=== PATIENT | male | born 1980 | race Caucasian/White ===

== ENCOUNTER 2022-08-15 20:50 | Emergency (ER) | payer SELFPAY ==
[~2022-08-15] VITALS: Ht 172.7 cm; Wt 96.0 kg
[2022-08-15 21:00] VITALS: BP 155/85
[2022-08-15] MEDS ORDERED: ACETAMINOPHEN 325MG TABLET PO ONE (21:45)
[2022-08-15] MEDS ORDERED: ONDANSETRON HCL 4MG TABLET PO ONE (21:45)
[2022-08-16 01:38] LABS: BASOPHILS % 0.3 % (0.0-2.0); EOSINOPHILS % 0.1 % (0.0-5.0); HEMATOCRIT. 41.6 % (42.0-52.0); HEMOGLOBIN. 13.7 g/dL (14.0-18.0); MEAN CORPUSCULAR HEMOGLOBIN 27.7 pg (28.0-32.0); MEAN CORPUSCULAR VOLUME 84.4 fL (80.0-94.0); MEAN PLATELET VOLUME 8.1 fl (7.4-10.4); MONOCYTES % 4.1 % (2.0-8.0); NEUTROPHILS % 82.5 % (40.0-76.0); PLATELET 227 x1000/uL (130-400); RED BLOOD CELL COUNT 4.93 mill/uL (4.7-6.1); RED CELL DISTRIBUTION WIDTH 15.6 % (11.6-14.6)
[2022-08-16 01:42] LABS: CHLORIDE 100 mEq/L (98-107)
[2022-08-16] MEDS ORDERED: TOPUD PO (01:58)
[2022-08-16] MEDS ORDERED: ONDA4TAB50 PO (01:58)
[2022-08-16] MEDS ORDERED: FAMO-135 MT (14:56)
[2022-08-16] MEDS ORDERED: ONDA4TAB11 PO (14:56)
== END 2022-08-16 02:43 | disposition home or self-care (01) ==
LOC: ER 20:50 → EDBD 20:50 → ER 08-16 02:43
DX: R10.9 Unspecified abdominal pain (principal); R11.2 Nausea with vomiting, unspecified
CPT/HCPCS: 36415; 80053; 85025; 99283

== ENCOUNTER 2022-08-16 03:34 | Emergency (ER) | payer MEDICAID ==
[~2022-08-16] VITALS: Ht 167.6 cm; Wt 72.0 kg
[~2022-08-16 03:34] MED LIST: ONDA4TAB50 PO; TOPUD PO
[2022-08-16] MEDS ORDERED: LORAZEPAM 2MG/ML CPJ IV ONE (09:00)
[2022-08-16] MEDS ORDERED: ONDANSETRON HCL 4MG/2ML INJ IV ONE (09:00)
[2022-08-16] MEDS ORDERED: SODIUM CHLORIDE 0.9% 1,000 ML IV ONE (09:00)
[2022-08-16 09:41] LABS: BASOPHILS % 0.3 % (0.0-2.0); CHLORIDE 98 mEq/L (98-107); EOSINOPHILS % 0.2 % (0.0-5.0); HEMATOCRIT. 44.5 % (42.0-52.0); HEMOGLOBIN. 14.6 g/dL (14.0-18.0); MEAN CORPUSCULAR HEMOGLOBIN 27.6 pg (28.0-32.0); MEAN CORPUSCULAR VOLUME 84.1 fL (80.0-94.0); MEAN PLATELET VOLUME 8.5 fl (7.4-10.4); NEUTROPHILS % 80.5 % (40.0-76.0); PLATELET 276 x1000/uL (130-400); RED BLOOD CELL COUNT 5.29 mill/uL (4.7-6.1); RED CELL DISTRIBUTION WIDTH 15.8 % (11.6-14.6)
[2022-08-16 09:52] LABS: ETHANOL BLOOD < 10 mg/dL
[2022-08-16] MEDS ORDERED: LORAZEPAM 2MG/ML CPJ IV NR (10:09)
[2022-08-16] MEDS ORDERED: ONDANSETRON HCL 4MG/2ML INJ IV NR (10:10)
[2022-08-16] MEDS ORDERED: SODIUM CHLORIDE 0.9% 1,000 ML IV NR (13:00)
[2022-08-16 14:26] LABS: *AMPHETAMINES SCREEN URINE NEGATIVE (NEGATIVE); *BARBITURATES SCREEN URINE NEGATIVE (NEGATIVE); *BENZODIAZEPINES SCREEN URINE NEGATIVE (NEGATIVE); *COCAINE SCREEN URINE NEGATIVE (NEGATIVE); CANNABINOID URINE SCREEN PRESUMTIVE POSITIVE (NEGATIVE); METHADONE URINE SCREEN NEGATIVE (NEGATIVE); OPIATES URINE SCREEN NEGATIVE (NEGATIVE); PHENCYCLIDINE URINE SCREEN NEGATIVE (NEGATIVE)
[2022-08-16] MEDS ORDERED: FAMO-135 MT (14:56)
[2022-08-16] MEDS ORDERED: ONDA4TAB11 PO (14:56)
[2022-08-16 15:14] VITALS: BP 129/66
== END 2022-08-16 15:28 | disposition home or self-care (01) ==
LOC: ER 03:34
DX: R10.13 Epigastric pain (principal); R11.2 Nausea with vomiting, unspecified
CPT/HCPCS: 36415; 80053; 80305; 80320; 85025; 96361; 96374; 96375; 99285; J2060; J2405; G0480

== ENCOUNTER 2022-09-01 08:11 | Emergency (ER) | payer MEDICAID ==
[~2022-09-01] VITALS: Ht 167.6 cm; Wt 87.0 kg
[~2022-09-01 08:11] MED LIST changes: +FAMO-135 MT; +ONDA4TAB11 PO
[2022-09-01 08:34] VITALS: BP 160/100
[2022-09-01] MEDS ORDERED: MAGNESIUM/ALUMINUM HYDROXIDE/SIMETHICONE 30ML UDC PO STA (08:47)
== END 2022-09-01 09:02 | disposition left against medical advice (07) ==
LOC: ER 08:11
DX: R10.9 Unspecified abdominal pain (principal); R11.2 Nausea with vomiting, unspecified; Z13.9 Encounter for screening, unspecified
CPT/HCPCS: 99283

== ENCOUNTER 2022-09-06 16:07 | Emergency (ER) | payer MEDICAID ==
[~2022-09-06] VITALS: Ht 170.2 cm; Wt 71.0 kg
[2022-09-06 16:10] VITALS: BP 150/90
[2022-09-06] MEDS ORDERED: ONDANSETRON HCL 4MG/2ML INJ IV STA (16:31)
[2022-09-06] MEDS ORDERED: METOCLOPRAMIDE HCL 10MG/2ML VIAL IV STA (16:31)
[2022-09-06] MEDS ORDERED: MAGNESIUM/ALUMINUM HYDROXIDE/SIMETHICONE 30ML UDC PO STA (16:31)
[2022-09-06] MEDS ORDERED: FAMOTIDINE 20MG/2ML VIAL IV STA (16:31)
[2022-09-06 17:35] LABS: BASOPHILS % 0.4 % (0.0-2.0); EOSINOPHILS % 0.9 % (0.0-5.0); HEMATOCRIT. 39.2 % (42.0-52.0); HEMOGLOBIN. 12.9 g/dL (14.0-18.0); LYMPHOCYTES % 12.5 % (20.0-50.0); MEAN CORPUSCULAR HEMOGLOBIN 27.6 pg (28.0-32.0); MEAN CORPUSCULAR VOLUME 83.7 fL (80.0-94.0); MONOCYTES % 6.5 % (2.0-8.0); NEUTROPHILS % 79.7 % (40.0-76.0); PLATELET 200 x1000/uL (130-400); RED BLOOD CELL COUNT 4.68 mill/uL (4.7-6.1); RED CELL DISTRIBUTION WIDTH 15.3 % (11.6-14.6)
[2022-09-06 17:44] LABS: CHLORIDE 102 mEq/L (98-107)
== END 2022-09-06 19:19 | disposition left against medical advice (07) ==
LOC: ER 16:07
DX: K85.90 Acute pancreatitis without necrosis or infection, unspecified (principal); R11.2 Nausea with vomiting, unspecified; R10.13 Epigastric pain; F41.9 Anxiety disorder, unspecified
CPT/HCPCS: 36415; 80053; 83690; 85025; 96374; 96375; 99284; J2405; J2765; J3490; Z7610

== ENCOUNTER 2022-09-24 13:07 | Emergency (ER) | payer MEDICAID ==
[~2022-09-24] VITALS: Ht 167.6 cm; Wt 109.0 kg
[2022-09-24 13:38] VITALS: BP 135/86
[2022-09-24 17:38] LABS: BASOPHILS % 0.4 % (0.0-2.0); EOSINOPHILS % 0.6 % (0.0-5.0); HEMATOCRIT. 42.3 % (42.0-52.0); HEMOGLOBIN. 13.7 g/dL (14.0-18.0); LYMPHOCYTES % 13.5 % (20.0-50.0); MEAN CORPUSCULAR HEMOGLOBIN 27.2 pg (28.0-32.0); MEAN CORPUSCULAR VOLUME 84.2 fL (80.0-94.0); MEAN PLATELET VOLUME 8.4 fl (7.4-10.4); NEUTROPHILS % 81.5 % (40.0-76.0); PLATELET 186 x1000/uL (130-400); RED BLOOD CELL COUNT 5.02 mill/uL (4.7-6.1)
[2022-09-24 17:49] LABS: CHLORIDE 102 mEq/L (98-107)
[2022-09-24 17:57] LABS: ETHANOL BLOOD < 10 mg/dL
== END 2022-09-24 20:25 | disposition left against medical advice (07) ==
LOC: ER 13:07
DX: R56.9 Unspecified convulsions (principal); F41.9 Anxiety disorder, unspecified; Z87.19 Personal history of other diseases of the digestive system
CPT/HCPCS: 36415; 80053; 80307; 80320; 80329; 82140; 85025; 99283; G0480

== ENCOUNTER 2022-09-26 18:48 | Emergency (ER) | payer MEDICAID ==
[~2022-09-26] VITALS: Ht 172.7 cm; Wt 95.3 kg
[2022-09-26 19:07] VITALS: BP 129/69
[2022-09-26] MEDS ORDERED: SODIUM CHLORIDE 0.9% 1,000 ML IV ONE (20:00)
[2022-09-26] MEDS ORDERED: LEVETIRACETAM 1000MG PREMIX 100 ML IV ONE (20:00)
== END 2022-09-26 22:11 | disposition left against medical advice (07) ==
LOC: ER 19:03
DX: R56.9 Unspecified convulsions (principal); R10.9 Unspecified abdominal pain; G89.29 Other chronic pain; F41.9 Anxiety disorder, unspecified; Z87.19 Personal history of other diseases of the digestive system
CPT/HCPCS: 93005; 99283; J7030

== ENCOUNTER 2022-09-27 13:32 | Emergency (ER) | payer MEDICAID ==
[~2022-09-27] VITALS: Ht 172.7 cm; Wt 80.0 kg
[2022-09-27 13:43] VITALS: BP 134/86
[2022-09-27] MEDS ORDERED: MAGNESIUM/ALUMINUM HYDROXIDE/SIMETHICONE 30ML UDC PO STA (14:11)
[2022-09-27] MEDS ORDERED: VISCOUS LIDOCAINE 2% 15 ML UDC PO STA (14:11)
[2022-09-27] MEDS ORDERED: ONDANSETRON 4MG ODT PO STA (14:11)
[2022-09-27] MEDS ORDERED: FAMOTIDINE 20MG TABLET PO ONE (14:15)
[2022-09-27 15:40] LABS: BASOPHILS % 0.2 % (0.0-2.0); EOSINOPHILS % 0.6 % (0.0-5.0); HEMATOCRIT. 40.3 % (42.0-52.0); HEMOGLOBIN. 13.1 g/dL (14.0-18.0); MEAN CORPUSCULAR VOLUME 83.1 fL (80.0-94.0); MEAN PLATELET VOLUME 8.5 fl (7.4-10.4); MONOCYTES % 4.5 % (2.0-8.0); NEUTROPHILS % 82.7 % (40.0-76.0); PLATELET 193 x1000/uL (130-400); RED BLOOD CELL COUNT 4.85 mill/uL (4.7-6.1); RED CELL DISTRIBUTION WIDTH 15.8 % (11.6-14.6)
[2022-09-27 15:48] LABS: CHLORIDE 104 mEq/L (98-107)
[2022-09-27] MEDS ORDERED: SODIUM CHLORIDE 0.9% 1,000 ML IV ONE (16:30)
[2022-09-27] MEDS ORDERED: KETOROLAC 15MG/ML VIAL IV ONE (16:30)
[2022-09-27] MEDS ORDERED: METOCLOPRAMIDE HCL 10MG/2ML VIAL IV ONE (16:30)
== END 2022-09-27 17:07 | disposition left against medical advice (07) ==
LOC: ER 14:12
DX: K85.90 Acute pancreatitis without necrosis or infection, unspecified (principal); F41.9 Anxiety disorder, unspecified; Z79.899 Other long term (current) drug therapy
CPT/HCPCS: 36415; 80053; 83690; 85025; 99283; J7030